=== PATIENT | male | born 1940 | race Caucasian/White ===

== ENCOUNTER 2017-08-24 11:36 | Outpatient (CLI) | payer MEDICARE ==
--- NOTE | 2017-08-24 15:38 | PET ---
PET CT: INDICATION: History of lung mass. COMPARISON: CT of the thorax dated 08/03/17 from [facility]. RADIOPHARMACEUTICAL: The patient received 11.4 mCi of [id number] IV. TECHNIQUE: PET CT images were obtained from the skull base through the thighs following administration of the IV radiopharmaceutical. CT images were obtained for attenuation correction purposes only. FINDINGS: The biodistribution for the examination appears acceptable. HEAD AND NECK: No hypermetabolic lymphadenopathy or mass is evident within the head and neck region. THORAX: There is a large hypermetabolicl mass seen within the right lower lobe measuring 6.6 cm with a maximu m SUV uptake of 6.12 with a mean uptake of 5.1. There are multiple hypermetabolic right hilar nodes with a maximum SUV uptake of 5.92 and mean uptake of 4.24. There is a hypermetabolic subcarinal lymph node maximum uptake of 5.2 and mean uptake of 4. 82. There is an additional mildly hypermetabolic right paratracheal lymph node with a maximum uptake of 2.3 and a mean uptake of 1.94. There is a pretracheal lymph node that is mildly enlarged but with no associated hypermetabolic uptak e measuring 1.1 cm. There is a moderate-size right-sided pleural effusion that has increased in size from the comparison examination with no associated hypermetabolic uptake. There is a spiculated semisolid nodule within the left upper lobe measuring 2.5 cm with a maximum SUV uptake of 2.3 and a mean uptake of 1.5. There is scattered emphysema involving both lungs. There is some subsegmental volume loss within the right lower lobe. ABDOMEN/PELVIS: The hypodense lesion within the left hepatic lobe measuring 2.3 cm demonstrates no associated hyperme tabolic activity. There are additional smaller hypodense lesions within the right hepatic lobe that are subcentimeter in size that demonstrate no associated hypermetabolic activity. The adrenal glands demonstrated no hypermetabolic uptake. There is some background activity seen wit hin the liver and the kidneys. There is some mild background activity seen within the bowel. There is background activity seen within the bladder. SKIN AND OSSEOUS STRUCTURES: No definite hypermetabolic skin or osseous lesion is evident. There is mild diffuse FDG uptake seen within the bone marrow of the axial and proximal appendicular skeleton likely related to background m arrow activity. IMPRESSION: Abnormal PET CT. 1. A large right lower lobe mass demonstrates marked hypermetabolic activity and is concerning for m alignancy. There is hypermetabolic lymphadenopathy involving multiple lymph nodes of the right hilar region as well as the subcarinal region. There is an additional mildly hypermetabolic right paratra cheal lymph node consistent with regional lymph node spread of disease. 2. There is a spiculated semisolid mildly hypermetabolic 2.5 cm nodule within the left upper lobe al so suspicious for malignancy. This could be related to a secondary primary malignancy versus metasta tic disease. 3. Hypodense mass in the left hepatic lobe demonstrates no associated hypermetabolic activity and is not suspicious for metastatic disease. Additional smaller hypodensities are seen within the right h epatic lobe also not suspicious for metastatic disease. No hypermetabolic lymphadenopathy or mass is seen within the abdomen or pelvis. 4. There is mild increased fluorodeoxyglucose activity is seen within the bone marrow of the axial a nd proximal appendicular skeleton which is suspicious for background marrow activity rather than osse ous metastatic disease. 5. Enlarging right-sided pleural effusion, now moderate in severity, when compared to recent CT of t he thorax dated 08/03/17 from [facility]. There is no associated hypermetabolic activity invo lving the right-sided pleural effusion nor along the pleural surface of the right hemithorax. POS: [facility]
== END 2017-08-24 11:37 | disposition home or self-care (01) ==
LOC: PET 11:36
PROVIDERS: ATTEND Internal Medicine Hematology & Oncology
DX: R91.1 Solitary pulmonary nodule (principal); R59.0 Localized enlarged lymph nodes; J90 Pleural effusion, not elsewhere classified
CPT/HCPCS: 78815; A9552